=== PATIENT | female | born 1990 | race African-American/Black ===

== ENCOUNTER 2022-03-18 13:30 | Emergency (ER) | payer BC ==
[~2022-03-18] VITALS: Ht 157.5 cm; Wt 63.5 kg
[2022-03-18] MEDS ORDERED: ZITHROMAX500 MG PO (19:01)
[2022-03-18] MEDS ORDERED: IRON325 MG PO (19:01)
[2022-03-18] MEDS ORDERED: STOOL SOFTENER50 MG PO (19:01)
== END 2022-03-18 20:26 | disposition home or self-care (01) ==
LOC: ER 13:30
DX: J32.9 Chronic sinusitis, unspecified (principal); D64.9 Anemia, unspecified; Z88.8 Allergy status to other drugs, medicaments and biological substances